=== PATIENT | male | born 1955 ===

== ENCOUNTER 2019-06-11 12:16 | Emergency (ER) | payer OTHER ==
[~2019-06-11] VITALS: Ht 175.3 cm; Wt 81.7 kg
[2019-06-11] MEDS ORDERED: LISI5 PO (12:27)
[2019-06-11] MEDS ORDERED: FOLI1 (12:28)
[2019-06-11] MEDS ORDERED: Aspir 8181 MG (12:29)
== END 2019-06-11 12:37 | disposition home or self-care (01) ==
LOC: ER 12:16
DX: F10.20 Alcohol dependence, uncomplicated (principal); I10 Essential (primary) hypertension; F17.200 Nicotine dependence, unspecified, uncomplicated; Z59.0 Homelessness; Z79.899 Other long term (current) drug therapy; Z79.82 Long term (current) use of aspirin
CPT/HCPCS: 99283

== ENCOUNTER 2019-06-16 10:11 | Emergency (ER) | payer OTHER ==
[~2019-06-16] VITALS: Ht 170.2 cm; Wt 74.8 kg
[~2019-06-16 10:11] MED LIST: Aspir 8181 MG; FOLI1; LISI5 PO
[2019-06-16 11:31] LABS: BASOPHILS ABSOLUTE AUTO 0.03 K/mm3 (0.00-0.23); BASOPHILS PERCENT AUTO 0 % (0-2); EOSINOPHILS ABSOLUTE AUTO 0.01 K/mm3 (0.00-0.68); EOSINOPHILS PERCENT AUTO 0 % (0-6); Hematocrit 37.4 % (37.0-53.0); Hemoglobin 13.1 g/dL (13.5-17.5); IMMATURE GRAN ABSOLUTE AUTO 0.04 K/mm3 (0.00-0.10); IMMATURE GRAN PERCENT AUTO 0 % (0-1); LYMPHOCYTES ABSOLUTE AUTO 3.75 K/mm3 (0.84-5.20); LYMPHOCYTES PERCENT AUTO 29 % (21-46); MONOCYTES PERCENT AUTO 12 % (4-13); Mean Corpuscular HGB 33.4 pg (26.0-34.0); Mean Corpuscular Volume 95 fL (80-100); Mean Platelet Volume 10.1 fL (9.1-12.4); NEUTROPHILS ABSOLUTE AUTO 7.65 K/mm3 (1.96-9.15); NEUTROPHILS PERCENT AUTO 59 % (41-73); Platelet Count 198 K/mm3 (150-400); RDW Coefficient Variation 13.9 % (11.7-14.2); RDW Standard Deviation 48.3 fL (35.1-46.3); Red Blood Cell Count 3.92 M/mm3 (4.30-5.90); White Blood Cell Count 13.08 K/mm3 (4.00-11.30)
[2019-06-16 11:54] LABS: Alanine Aminotransfer (ALT/SGP 101 U/L (12-78); Albumin, Blood 3.1 g/dL (3.4-5.0); Albumin/Globulin Ratio 0.7 (0.8-1.8); Alk Phos 94 U/L (50-136); Anion Gap 9 mmol/L (6-16); Aspartate Aminotrans (AST/SGOT 139 U/L (12-37); Bilirubin, Total 0.7 mg/dL (0.1-1.0); Blood Urea Nitrogen 12 mg/dL (8-24); Bun/Creatinine Ratio 13.5 (12.0-20.0); CO2, Blood 28 mmol/L (21-32); Calcium, Blood 8.7 mg/dL (8.5-10.1); Chloride, Blood 103 mmol/L (98-108); Creatinine, Blood 0.89 mg/dL (0.60-1.20); Ethanol (Alcohol), Blood, Med <3 mg/dL; Globulin, Blood 4.5 g/dL (2.2-4.0); Glomerular Filtration Rate >60 (60-); Glucose, Blood 106 mg/dL (70-99); Potassium, Blood 3.2 mmol/L (3.5-5.5); Sodium, Blood 140 mmol/L (136-145); Total Protein, Blood 7.6 g/dL (6.4-8.2)
[2019-06-16 12:12] LABS: U Amphetamine Screen DETECTED; U Barbituate Screen Not Detected; U Benzodiazapine Screen Not Detected; U Buprenorphine Screen Not Detected; U Cannabinoids Screen DETECTED; U Cocaine Screen Not Detected; U Methadone Screen Not Detected; U Methamphetamine Screen DETECTED; U Opiates Screen Not Detected; U Oxycodone Screen Not Detected; U Phencyclidine Screen Not Detected; U Propoxyphene Screen Not Detected
== END 2019-06-16 12:00 | disposition home or self-care (01) ==
LOC: ER 10:11
PROVIDERS: Internal Medicine
DX: F10.10 Alcohol abuse, uncomplicated (principal); F15.10 Other stimulant abuse, uncomplicated; I10 Essential (primary) hypertension; E03.9 Hypothyroidism, unspecified; F17.200 Nicotine dependence, unspecified, uncomplicated; Z79.899 Other long term (current) drug therapy; Z79.82 Long term (current) use of aspirin
CPT/HCPCS: 36415; 80053; 85025; 96365; 99284-25; G0480; J3411; J7120

== ENCOUNTER 2019-07-02 13:53 | Emergency (ER) | payer OTHER ==
[~2019-07-02] VITALS: Ht 175.3 cm; Wt 79.4 kg
[2019-07-02] MEDS ORDERED: HYDCHL12.5 PO (14:59)
[2019-07-02 15:02] LABS: BASOPHILS ABSOLUTE AUTO 0.04 K/mm3 (0.00-0.23); BASOPHILS PERCENT AUTO 1 % (0-2); EOSINOPHILS ABSOLUTE AUTO 0.04 K/mm3 (0.00-0.68); EOSINOPHILS PERCENT AUTO 1 % (0-6); Hematocrit 40.4 % (37.0-53.0); IMMATURE GRAN ABSOLUTE AUTO 0.02 K/mm3 (0.00-0.10); IMMATURE GRAN PERCENT AUTO 0 % (0-1); LYMPHOCYTES ABSOLUTE AUTO 3.11 K/mm3 (0.84-5.20); LYMPHOCYTES PERCENT AUTO 38 % (21-46); MONOCYTES ABSOLUTE AUTO 1.02 K/mm3 (0.16-1.47); MONOCYTES PERCENT AUTO 12 % (4-13); Mean Corpuscular HGB 33.2 pg (26.0-34.0); Mean Corpuscular HGB Conc 34.7 g/dL (31.5-36.5); Mean Corpuscular Volume 96 fL (80-100); Mean Platelet Volume 10.3 fL (9.1-12.4); NEUTROPHILS ABSOLUTE AUTO 4.05 K/mm3 (1.96-9.15); NEUTROPHILS PERCENT AUTO 49 % (41-73); Platelet Count 242 K/mm3 (150-400); RDW Coefficient Variation 13.4 % (11.7-14.2); RDW Standard Deviation 46.8 fL (35.1-46.3); Red Blood Cell Count 4.22 M/mm3 (4.30-5.90); White Blood Cell Count 8.28 K/mm3 (4.00-11.30)
[2019-07-02 15:24] LABS: Alanine Aminotransfer (ALT/SGP 195 U/L (12-78); Albumin, Blood 3.2 g/dL (3.4-5.0); Albumin/Globulin Ratio 0.7 (0.8-1.8); Alk Phos 176 U/L (50-136); Anion Gap 7 mmol/L (6-16); Aspartate Aminotrans (AST/SGOT 221 U/L (12-37); Bilirubin, Total 0.4 mg/dL (0.1-1.0); Blood Urea Nitrogen 11 mg/dL (8-24); Bun/Creatinine Ratio 18.8 (12.0-20.0); CO2, Blood 27 mmol/L (21-32); Calcium, Blood 9.5 mg/dL (8.5-10.1); Chloride, Blood 105 mmol/L (98-108); Creatinine, Blood 0.59 mg/dL (0.60-1.20); Ethanol (Alcohol), Blood, Med <3 mg/dL; Globulin, Blood 4.8 g/dL (2.2-4.0); Glomerular Filtration Rate >60 (60-); Glucose, Blood 100 mg/dL (70-99); Potassium, Blood 3.6 mmol/L (3.5-5.5); Sodium, Blood 139 mmol/L (136-145); Troponin I <0.015 ng/mL (0.000-0.040)
[2019-07-02 17:31] LABS: U Amphetamine Screen Not Detected; U Barbituate Screen Not Detected; U Benzodiazapine Screen Not Detected; U Buprenorphine Screen Not Detected; U Cannabinoids Screen DETECTED; U Cocaine Screen Not Detected; U Methadone Screen Not Detected; U Methamphetamine Screen DETECTED; U Opiates Screen Not Detected; U Oxycodone Screen Not Detected; U Phencyclidine Screen Not Detected
[2019-07-02 17:32] LABS: U Propoxyphene Screen Not Detected
[2019-07-02] MEDS ORDERED: CHLO25 PO (18:35)
[2019-07-02] MEDS ORDERED: METO25ER PO (18:35)
== END 2019-07-02 19:53 | disposition home or self-care (01) ==
LOC: ER 13:53
PROVIDERS: Physician Assistant
DX: I71.2 Thoracic aortic aneurysm, without rupture (principal); I71.4 Abdominal aortic aneurysm, without rupture; F19.10 Other psychoactive substance abuse, uncomplicated; I10 Essential (primary) hypertension; F17.200 Nicotine dependence, unspecified, uncomplicated; Z79.899 Other long term (current) drug therapy; Z79.82 Long term (current) use of aspirin
CPT/HCPCS: 36415; 71046; 71275; 74175; 80053; 84484; 85025; 93005; 93010; 99285-25; G0480; Q3014; Q9967

== ENCOUNTER 2019-07-07 04:22 | Emergency (ER) | payer OTHER ==
[~2019-07-07] VITALS: Ht 175.3 cm; Wt 79.4 kg
[~2019-07-07 04:22] MED LIST changes: +CHLO25 PO; +HYDCHL12.5 PO; +METO25ER PO
== END 2019-07-07 04:51 | disposition home or self-care (01) ==
LOC: ER 04:22
DX: F32.9 Major depressive disorder, single episode, unspecified (principal); F10.10 Alcohol abuse, uncomplicated; Z79.899 Other long term (current) drug therapy; Z79.82 Long term (current) use of aspirin; F17.200 Nicotine dependence, unspecified, uncomplicated
CPT/HCPCS: 99283

== ENCOUNTER 2019-09-24 19:08 | Inpatient (IN) | payer OTHER ==
[~2019-09-24] VITALS: Ht 175.3 cm; Wt 92.0 kg
[2019-09-24] MEDS ORDERED: LAMO25 PO (20:27)
[2019-09-24] MEDS ORDERED: AMLO5 PO (20:27)
[2019-09-24] MEDS ORDERED: ASCO500 PO (20:27)
[2019-09-24] MEDS ORDERED: NIAC500 PO (20:28)
[2019-09-24] MEDS ORDERED: MELA3 PO (20:28)
[2019-09-24 21:27] LABS: BASOPHILS ABSOLUTE AUTO 0.03 K/mm3 (0.00-0.23); BASOPHILS PERCENT AUTO 0 % (0-2); EOSINOPHILS PERCENT AUTO 0 % (0-6); Hematocrit 33.8 % (37.0-53.0); Hemoglobin 11.2 g/dL (13.5-17.5); IMMATURE GRAN ABSOLUTE AUTO 0.06 K/mm3 (0.00-0.10); IMMATURE GRAN PERCENT AUTO 0 % (0-1); LYMPHOCYTES ABSOLUTE AUTO 2.35 K/mm3 (0.84-5.20); LYMPHOCYTES PERCENT AUTO 16 % (21-46); MONOCYTES ABSOLUTE AUTO 1.07 K/mm3 (0.16-1.47); MONOCYTES PERCENT AUTO 8 % (4-13); Mean Corpuscular HGB 32.7 pg (26.0-34.0); Mean Corpuscular HGB Conc 33.1 g/dL (31.5-36.5); Mean Corpuscular Volume 99 fL (80-100); Mean Platelet Volume 10.9 fL (9.1-12.4); NEUTROPHILS ABSOLUTE AUTO 10.85 K/mm3 (1.96-9.15); NEUTROPHILS PERCENT AUTO 76 % (41-73); Platelet Count 238 K/mm3 (150-400); RDW Coefficient Variation 14.9 % (11.7-14.2); RDW Standard Deviation 53.9 fL (35.1-46.3); Red Blood Cell Count 3.42 M/mm3 (4.30-5.90); White Blood Cell Count 14.36 K/mm3 (4.00-11.30)
[2019-09-24 21:50] LABS: Albumin, Blood 2.9 g/dL (3.4-5.0); Albumin/Globulin Ratio 0.6 (0.8-1.8); Bilirubin, Total 0.7 mg/dL (0.1-1.0); Bun/Creatinine Ratio 9.3 (12.0-20.0); Calcium, Blood 8.4 mg/dL (8.5-10.1); Creatinine, Blood 1.93 mg/dL (0.60-1.20); Globulin, Blood 4.7 g/dL (2.2-4.0); Potassium, Blood 4.2 mmol/L (3.5-5.5); Total Protein, Blood 7.6 g/dL (6.4-8.2)
--- NOTE | 2019-09-25 07:11 | NUR ---
SHIFT SUMMARY PT NEW ADMIT THIS AM. AAOX4. NPO. LUNG SOUNDS DIMINISHED LEFT SIDE. ON RA. DISCOMFORT TO LEFT RIBS NOTED WITH MINIMAL MOVEMENT. DISCOMFORT CONTROLLED WITH 1MG IV DILAUDID X1 SINCE ADMISSION TO FLOOR. NO NAUSEA/EMESIS. ABD HERNIA NOTED, PT REPORTING NO ACUTE CHANGE. PT RESTING AT THIS TIME WITH CALL LIGHT IN REACH, NADN. PULSE OXIMETRY IN PLACE.
--- NOTE | 2019-09-25 12:51 | NUR ---
1245 TO DAY SURGERY PER BED
--- NOTE | 2019-09-25 16:06 | NUR ---
1515 RETURN TO ROOM FROM PACU AWAKE ALERT CLENCHING ARMS AND LEGS HE STATES DUE TO PAIN. PT REPORTS 10/10 PAIN TO LEFT CHEST. BIOX 92% ON 2 LITERS OXYGEN, PT DENIES SOB. LEFT CHEST TUBE IN PLACE WITH BLOODY OUTPUT IN CHEST TUBE DRAIN. CHEST WALL DRESSING DRY AND INTACT. PT MEDICATED WITH PO MEDS. DEEP BREATHING EXCERCISES DONE WITH PATIENT. PT CALMED WITH DEEP BREQATHING
--- NOTE | 2019-09-25 16:08 | NUR ---
1540 PAIN PATIENT YELLING OUT REPORTS 10/10 LEFT CHEST PAIN. BRIGHT RED BLOODY DRAINAGE RUNNING OUT FROM [place] CHEST TUBE DRESSING. PT REPORTS INCREASEED PAIN. DR SCOTT NOTIFIED OF DRAINAGE AND PATIENTS PAIN LEVEL. DR SCOTT WILL PLACE ORDERS. LEFT CHEST TUBE DRESSING REINFORCED WITH GAUZE AND ABD PADS. PT CALMING WITH DEEP BREATHING
--- NOTE | 2019-09-25 19:17 | NUR ---
SUMMARY PT REPORTS PAIN TO LEFT CHEST 8-05/05/ LEFT CHEST TUBE IN PLACE WITH BLOODY DRAINAGE. L CHEST TUBE DRESSING SATURATED WITH BLOODY DRAINAGE, REINFORCED DRESSING X1. PT ABHIJEET PO FOOD AND FLUIDS. PT HAS VOIDED CHARBEL URINE POST OP
[2019-09-26 04:38] LABS: BASOPHILS ABSOLUTE AUTO 0.04 K/mm3 (0.00-0.23); BASOPHILS PERCENT AUTO 0 % (0-2); EOSINOPHILS ABSOLUTE AUTO 0.16 K/mm3 (0.00-0.68); EOSINOPHILS PERCENT AUTO 1 % (0-6); Hemoglobin 8.9 g/dL (13.5-17.5); IMMATURE GRAN ABSOLUTE AUTO 0.09 K/mm3 (0.00-0.10); IMMATURE GRAN PERCENT AUTO 1 % (0-1); LYMPHOCYTES ABSOLUTE AUTO 3.52 K/mm3 (0.84-5.20); LYMPHOCYTES PERCENT AUTO 21 % (21-46); MONOCYTES ABSOLUTE AUTO 1.93 K/mm3 (0.16-1.47); MONOCYTES PERCENT AUTO 11 % (4-13); Mean Corpuscular HGB 32.8 pg (26.0-34.0); Mean Corpuscular Volume 100 fL (80-100); Mean Platelet Volume 10.5 fL (9.1-12.4); NEUTROPHILS PERCENT AUTO 67 % (41-73); NRBC ABSOLUTE 0.03 K/mm3 (0.00-0.02); NRBC Auto 0.2 /100 WBC (0.0-0.2); Platelet Count 211 K/mm3 (150-400); RDW Coefficient Variation 15.1 % (11.7-14.2); RDW Standard Deviation 54.5 fL (35.1-46.3); Red Blood Cell Count 2.71 M/mm3 (4.30-5.90); White Blood Cell Count 17.14 K/mm3 (4.00-11.30)
[2019-09-26 04:56] LABS: Bun/Creatinine Ratio 15.2 (12.0-20.0); Calcium, Blood 8.1 mg/dL (8.5-10.1); Creatinine, Blood 2.31 mg/dL (0.60-1.20); Potassium, Blood 4.5 mmol/L (3.5-5.5)
--- NOTE | 2019-09-26 07:38 | NUR ---
SHIFT SUMMARY PT RESTED INTERMITTENTLY T/O NIGHT. AAOX4/ANXIOUS AT TIMES + MOVES FREQUENTLY IN BED. DISCOMFORT MINIMIZED WITH X2 PAIN PILLS Q4-5H + 50mcg FENTANYL X3 THIS SHIFT FOR BREAKTHROUGH. NO NAUSEA/EMESIS. LUNG SOUND DECREASED TO LEFT LOBES + CLEAR TO COARSE IN RIGHT LOBES. RESPIRATIONS SHALLOW, ENCOURAGE DEEP BREATHING TOLERATED. 4L VIA NC, PT NEEDS FREQUENT ENCOURAGEMENT TO MAINTAIN IN NARES. CHEST TUBE TO LEFT CHEST WALL TO WALL SUCTION, CHEST TUBE SECURE WITH PLEUROVAC CHAMBER GENTLE BUBBLE. LARGE AMOUNTS OF SEROUS DRAINAGE AROUND TUBE, DRESSING REINFORCED MULTIPLE TIMES T/O NIGHT. NO CREPITUS. PT SITTING UP IN BED AT THIS TIME, NADN, WITH CALL LIGHT IN REACH WATCHING TV. REPORT TO DAY SHIFT RN.
--- NOTE | 2019-09-26 08:01 | NUR ---
LEFT CHEST WALL WITH REINFORCED DRESSING OVER CHEST TUBE INSERTION SITE, SCANT BLOODY DRAINAGE NOTED. CHEST TUBE WITHOUT SIGN OF AIR LEAK. WILL MONITOR DRAINAGE.
[2019-09-26 10:02] LABS: International Normalized Ratio 1.01; Prothrombin Time Results 10.8 Sec (9.7-11.5)
[2019-09-26 10:07] LABS: Albumin, Blood 2.5 g/dL (3.4-5.0); Albumin/Globulin Ratio 0.6 (0.8-1.8); Bilirubin, Total 0.5 mg/dL (0.1-1.0); Bun/Creatinine Ratio 19.4 (12.0-20.0); Creatinine, Blood 1.8 mg/dL (0.60-1.20); Globulin, Blood 3.9 g/dL (2.2-4.0); Magnesium, Blood 1.9 mg/dL (1.6-2.4); Phosphorus, Blood 3.2 mg/dL (2.5-4.9); Potassium, Blood 4.1 mmol/L (3.5-5.5); Total Protein, Blood 6.4 g/dL (6.4-8.2)
[2019-09-26 10:11] LABS: Thyroid Stimulating Hormone 0.853 uIU/mL (0.360-4.800)
[2019-09-26 10:41] LABS: Source, Urine Clean Catch
[2019-09-26 10:47] LABS: Bilirubin, Urine Neg (Neg); Blood, Urine Neg (Neg); Glucose Qualitative, Urine Neg (Neg); Ketones, Urine Neg (Neg); Leukocyte Esterase, Urine Neg (Neg); Nitrite, Urine Neg (Neg); Urobilinogen, Urine 1+ (Normal)
[2019-09-26 12:00] LABS: Protein, Urine 1+ (Neg)
[2019-09-26 12:05] LABS: Appearance, Urine Clear (Clear); Color, Urine Yellow (P-Yellow)
[2019-09-26 12:25] LABS: U Amphetamine Screen DETECTED; U Barbituate Screen Not Detected; U Benzodiazapine Screen DETECTED; U Buprenorphine Screen Not Detected; U Cannabinoids Screen DETECTED; U Cocaine Screen Not Detected; U Methadone Screen Not Detected; U Methamphetamine Screen DETECTED; U Opiates Screen DETECTED; U Oxycodone Screen DETECTED; U Phencyclidine Screen Not Detected; U Propoxyphene Screen Not Detected
--- NOTE | 2019-09-26 15:11 | NUR ---
permission to provide care [facility] patient care nursing assistant, received permission on 09-26-2019 to provide care on 09-27-2019
--- NOTE | 2019-09-26 16:05 | NUR ---
Patient gave verbal permission for me to care for him tomorrow morning, 09/27/19.
--- NOTE | 2019-09-26 17:52 | NUR ---
SHIFT SUMMARY PT HAS HAD NO ACUTE CHANGES THIS SHIFT, MEDICATED PER MAR FOR PAIN, CHEST TUBE CONTINUES TO LEAK, HAVE FOUND PATIENT DIGGING AT IT SEVERAL TIMES- NEEDS REMINDERS THAT IS TUBE SITE, REMAINS ON O2 BUT ALSO NEEDS REMINDERS TO LEAVE IN PLACE, PT ALERT & PLEASANT, COOPERATIVE W/CARE- JUST FORGETFUL AT TIMES, UP TO BSC 1X THIS SHIFT, AMBULATED WELL W/ST BY ASSIST, PT BEDRESTING AT THIS TIME, CALL LIGHT IN REACH, WILL CONT TO MONITOR UNTIL REPORT GIVEN TO NOC RN.
--- NOTE | 2019-09-26 22:58 | NUR ---
DRESSING CHANGE LEFT CHEST TUBE DRESSINGS SATURATED, LEAKING ONTO GOWN AND LINENS. DID REMOVE DRESSING DOWN TO THE VASELINE GAUZE. REINFORCED WITH ANOTHER VASELINE DRESSING AND APPLIED NEW DRAIN GAUZE AND 4X4, LAYED OVER AN ABD DRESSING AND SECURED WITH PRESSURE TAPE. PT DOES HAVE SOME BLISTERING ON ANTERIOR CHEST R/T THE DRESSING. 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 PT STATES FEELING BETTER, REPOSITIONED IN BED FOR COMFORT. OXYGEN IN PLACE AND SPO2 >90%. CALL LIGHT IN REACH. RN WILL MEDICATE FOR PAIN.
[2019-09-27 04:40] LABS: Hematocrit 26.9 % (37.0-53.0); Hemoglobin 8.7 g/dL (13.5-17.5); Mean Corpuscular HGB 32.5 pg (26.0-34.0); Mean Corpuscular HGB Conc 32.3 g/dL (31.5-36.5); Mean Corpuscular Volume 100 fL (80-100); Mean Platelet Volume 10.2 fL (9.1-12.4); NRBC ABSOLUTE 0.02 K/mm3 (0.00-0.02); NRBC Auto 0.1 /100 WBC (0.0-0.2); Platelet Count 231 K/mm3 (150-400); RDW Coefficient Variation 14.7 % (11.7-14.2); RDW Standard Deviation 53.8 fL (35.1-46.3); Red Blood Cell Count 2.68 M/mm3 (4.30-5.90); White Blood Cell Count 15.86 K/mm3 (4.00-11.30)
[2019-09-27 05:05] LABS: Alanine Aminotransfer (ALT/SGP 117 U/L (12-78); Albumin, Blood 2.6 g/dL (3.4-5.0); Albumin/Globulin Ratio 0.6 (0.8-1.8); Alk Phos 93 U/L (50-136); Anion Gap 2 mmol/L (6-16); Aspartate Aminotrans (AST/SGOT 105 U/L (12-37); Bilirubin, Total 0.6 mg/dL (0.1-1.0); Blood Urea Nitrogen 16 mg/dL (8-24); Bun/Creatinine Ratio 20.2 (12.0-20.0); CO2, Blood 30 mmol/L (21-32); CPK Creatine Kinase 283 U/L (39-308); Calcium, Blood 8.4 mg/dL (8.5-10.1); Chloride, Blood 103 mmol/L (98-108); Creatinine, Blood 0.79 mg/dL (0.60-1.20); Globulin, Blood 4.4 g/dL (2.2-4.0); Glomerular Filtration Rate >60 (60-); Glucose, Blood 104 mg/dL (70-99); Potassium, Blood 4.4 mmol/L (3.5-5.5); Sodium, Blood 135 mmol/L (136-145)
--- NOTE | 2019-09-27 06:03 | NUR ---
SHIFT SUMMARY RESTING WITH EASE AT THIS TIME. RESPIRATIONS EVEN AND UNLABORED ON O2 AT 4L/NC, CONT BIOX IN PLACE. HAS C/O PAIN THROUGHOUT SHIFT, MEDICATED PER EMAR X2 WITH PERCOCET AND X2 WITH FENT, TOLERATED EACH WELL. 50ML SEROSANGUINOUS FLUID NOTED OUT FROM. DRESSING WAS REPLACED X1 THIS SHIFT. NO LEAKS, SUB CUE EMPHASEMA, OR CREPITUS NOTED. GOOD TIDALING AND AIR BUBBLES NOTED IN CHAMBER OF WATERSEAL CONNECTED TO SUCTION. CONTINENT OF BOWEL AND BLADDER, USES URINAL AT BEDSIDE. LEFT AC PIV IS PATENT, FLUSIHING WITH EASE WHILE INFUSING LR AT 125ML/HR. SCD'S TO BLE. DENIES FURTHER NEEDS OR WANTS AT THIS TIME. SAFETY MEASURES IN PLACE. WILL GIVE HAND OFF TO ONCOMING SHIFT USING SBAR.
[2019-09-27 06:10] LABS: BASOPHILS PERCENT MAN 0 % (0-2); EOSINOPHILS ABSOLUTE MAN 0.95 K/mm3 (0.00-0.68); EOSINOPHILS PERCENT MAN 6 % (0-6); LYMPHOCYTES ABSOLUTE MAN 3.48 K/mm3 (0.84-5.20); LYMPHOCYTES PERCENT MAN 22 % (21-46); MONOCYTES PERCENT MAN 12 % (4-13); NEUTROPHILS ABSOLUTE MAN 9.51 K/mm3 (1.96-9.15); SEG NEUTROPHILS PERCENT MAN 60 % (41-73); TOTAL CELLS COUNTED 100
--- NOTE | 2019-09-27 06:20 | NUR ---
TAKEN TO XRAY VIA BED BY BEKIZ.
--- NOTE | 2019-09-27 06:35 | NUR ---
RETURNED TO [facility] VIA BED AFTER C-XRAY COMPLETED. RECONNECTED TO WALL O2, BIOX, AND SUCTION VIA WATERSEAL. IV FLUIDS RESTARTED TO LEFT AC 20G PIV. DENEIS FURTHER NEEDS AT THIS TIME. SAFETY MEASURES IN PLACE. WILL CONTINUE TO MONITOR.
[2019-09-27] MEDS ORDERED: Percocet 5-3251 EACH PO (14:14)
--- NOTE | 2019-09-27 15:04 | NUR ---
CHEST TUBE DC'D BY DR. SCOTT, PT TO DC HOME, DC INSTRUCTIONS GIVEN, VERBALIZE UNDERSTANDING, IV DC'D, CATH INTACT.
== END 2019-09-27 17:56 | disposition home or self-care (01) | DRG 200 ==
LOC: ER 19:08 → SURS 19:09
PROVIDERS: Nurse Practitioner Acute Care; Physician Assistant; ADMIT Surgery
PROC: 0W9B30Z Drainage of Left Pleural Cavity with Drainage Device, Percutaneous Approach (ICD-10-PCS; principal; 2019-09-25 13:30)
DX: S27.1XXA Traumatic hemothorax, initial encounter (principal); S22.42XA Multiple fractures of ribs, left side, initial encounter for closed fracture; N17.9 Acute kidney failure, unspecified; W01.10XA Fall on same level from slipping, tripping and stumbling with subsequent striking against unspecified object, initial encounter; D72.829 Elevated white blood cell count, unspecified; I10 Essential (primary) hypertension; K74.60 Unspecified cirrhosis of liver; B19.20 Unspecified viral hepatitis C without hepatic coma; F10.10 Alcohol abuse, uncomplicated; F15.10 Other stimulant abuse, uncomplicated; F20.9 Schizophrenia, unspecified; F31.9 Bipolar disorder, unspecified; G40.909 Epilepsy, unspecified, not intractable, without status epilepticus; F43.10 Post-traumatic stress disorder, unspecified; F41.1 Generalized anxiety disorder; Y92.828 Other wilderness area as the place of occurrence of the external cause; Z59.0 Homelessness; Z79.899 Other long term (current) drug therapy; Z87.891 Personal history of nicotine dependence
CPT/HCPCS: 36415; 71045; 71046; 71260; 74177; 80048; 80053; 82550; 83735; 83880; 84100; 84145; 84443; 85007; 85018; 85025; 85027; 85610; 94762; 96361; 96374-59; 96375-59; 96376; 99285-25; A9270-GY; G0378; J0690; J1170; J2250; J2405; J2704; J3010; J7030; J7042; J7120; Q9967

== ENCOUNTER 2019-09-29 00:27 | Emergency (ER) | payer OTHER ==
[~2019-09-29] VITALS: Ht 175.3 cm; Wt 83.9 kg
[~2019-09-29 00:27] MED LIST changes: +AMLO5 PO; +ASCO500 PO; +LAMO25 PO; +MELA3 PO; +NIAC500 PO; +Percocet 5-3251 EACH PO
== END 2019-09-29 05:16 | disposition home or self-care (01) ==
LOC: ER 00:27
DX: G89.18 Other acute postprocedural pain (principal); R07.89 Other chest pain; S22.42XD Multiple fractures of ribs, left side, subsequent encounter for fracture with routine healing; Z79.899 Other long term (current) drug therapy; F17.200 Nicotine dependence, unspecified, uncomplicated
CPT/HCPCS: 96372; 99283-25; J3010

== ENCOUNTER 2022-07-27 09:04 | Emergency (ER) | payer OTHER ==
[~2022-07-27] VITALS: Ht 175.3 cm; Wt 83.9 kg
[~2022-07-27 09:04] MED LIST changes: +ZESTRIL40 M1 PO
[2022-07-27 11:43] LABS: BASOPHILS ABSOLUTE AUTO 0.04 K/mm3 (0.00-0.23); BASOPHILS PERCENT AUTO 0 % (0-2); EOSINOPHILS PERCENT AUTO 1 % (0-6); Hematocrit 43.6 % (37.0-53.0); Hemoglobin 15.4 g/dL (13.5-17.5); IMMATURE GRAN ABSOLUTE AUTO 0.04 K/mm3 (0.00-0.10); IMMATURE GRAN PERCENT AUTO 0 % (0-1); LYMPHOCYTES ABSOLUTE AUTO 1.95 K/mm3 (0.84-5.20); LYMPHOCYTES PERCENT AUTO 19 % (21-46); MONOCYTES ABSOLUTE AUTO 0.75 K/mm3 (0.16-1.47); MONOCYTES PERCENT AUTO 7 % (4-13); Mean Corpuscular HGB 32.6 pg (26.0-34.0); Mean Corpuscular HGB Conc 35.3 g/dL (31.5-36.5); Mean Corpuscular Volume 92 fL (80-100); Mean Platelet Volume 11.4 fL (9.1-12.4); NEUTROPHILS ABSOLUTE AUTO 7.56 K/mm3 (1.96-9.15); NEUTROPHILS PERCENT AUTO 72 % (41-73); Platelet Count 225 K/mm3 (150-400); RDW Coefficient Variation 14.6 % (11.7-14.2); RDW Standard Deviation 50.1 fL (35.1-46.3); Red Blood Cell Count 4.72 M/mm3 (4.30-5.90); White Blood Cell Count 10.44 K/mm3 (4.00-11.30)
[2022-07-27 12:02] LABS: Albumin/Globulin Ratio 0.6 (0.8-1.8); Bilirubin, Total 1.1 mg/dL (0.1-1.0); Bun/Creatinine Ratio 29.9 (12.0-20.0); Calcium, Blood 8.7 mg/dL (8.5-10.1); Creatinine, Blood 0.6 mg/dL (0.60-1.20)
[2022-07-27 12:10] LABS: Influenza A, PCR NEGATIVE (NEGATIVE); Influenza B, PCR NEGATIVE (NEGATIVE); Resp Syncytial Virus, PCR NEGATIVE (NEGATIVE); SARS-Cov-2 (COVID-19) PCR, MMC NEGATIVE (NEGATIVE)
== END 2022-07-27 14:41 | disposition home or self-care (01) ==
LOC: ER 09:04
PROVIDERS: Student in an Organized Health Care Education/Training Program
DX: R06.02 Shortness of breath (principal); I10 Essential (primary) hypertension; G40.909 Epilepsy, unspecified, not intractable, without status epilepticus; Z79.899 Other long term (current) drug therapy; Z87.891 Personal history of nicotine dependence; Z20.822 Contact with and (suspected) exposure to COVID-19
CPT/HCPCS: 0241U; 36415; 71046; 80053; 83880; 84484; 85025; 93005; 93010; A9270